=== PATIENT | female | born 2000 | race American Indian/Alaskan Native ===

== ENCOUNTER 2020-03-08 09:48 | Emergency (ER) | payer SELFPAY ==
[2020-03-08 09:57] VITALS: BP 111/79
[2020-03-08 12:01] LABS: Bacteria,Urine 1+ /HPF (Negative); Bilirubin,Urine NEG (Negative); Blood,Urine NEG (Negative); Color,Urine Yellow (Yellow); Mucus,Urine FEW /HPF; Protein,Urine <15 mg/dL mg/dL (Negative); Urobilinogen,Urine < 2.0 mg/dL (<2.0)
[2020-03-08 12:03] LABS: HCG Qualitative,Urine Positive (Negative)
== END 2020-03-08 16:00 | disposition left against medical advice (07) ==
LOC: ED 09:48
DX: R11.10 Vomiting, unspecified (principal); Z53.21 Procedure and treatment not carried out due to patient leaving prior to being seen by health care provider
CPT/HCPCS: 81001; 81025; 87086